=== PATIENT | male | born 1965 | race Caucasian/White ===

== ENCOUNTER 2018-08-29 14:17 | Inpatient (IN) | payer OTHER ==
[~2018-08-29] VITALS: Ht 180.3 cm; Wt 105.2 kg
--- NOTE | ~2018-08-29 | H ---
[facility] [place] [address] HISTORY AND PHYSICAL Name: GERMAINE PETERS Room #: 504-1 ADM IN M.R.#: [id number] Admission: 08/29/18 ������������������ Attend Phys: James Jacobs MD Discharge: ������������������ Date of : 61 Report #: [id number] THIS REPORT FOR: //name// CC: James Jacobs [facility] physician/PCP DATE OF SERVICE: 08/29/2018 HISTORY AND PHYSICAL/POSTADMISSION PHYSICIAN EVALUATION: HISTORY OF PRESENT ILLNESS: This is a 52-year-old white male who was originally admitted to [facility] on 08/15/2018 with complaints of altered mental status. He was found to have acute encephalopathy, confusion and lethargy. He reportedly took narcotics in a suicide attempt. He also was noted to have elevated alcohol with intoxication ____ on admission. He had made multiple threats to harm himself. He was intubated on arrival to the Emergency Department and admitted to the ICU. He had improved, mentation was extubated, but the next day, he unfortunately became increasingly agitated and delirious. There was suspicion for alcohol withdrawal. He was reintubated, required high doses of medication for sedation. He was started on Depakote and Librium. He was extubated on 08/22/2018 and was noted to be gradually returning close to his baseline as the medications have gotten out of his system. He was continued on a 1:1 sitter for initial concerns regarding suicide attempt. Psych was consulted. The patient was not felt to be suicidal. He was still noted to have significant functional mobility and ADL deficits, was noted to have a multifactorial encephalopathy and has been transferred for acute in-hospital inpatient rehabilitation. My understanding is that after he has completed his inpatient rehabilitation he then is to be transferred to an inpatient drug and alcohol treatment center. PAST MEDICAL HISTORY: Includes left arm trauma with several surgeries, essentially loss of triceps function and note to have arm replantation. He has had a cervical fusion C4-C5. He has had a liver biopsy. 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 MEDICATIONS: Please see the full medication listing. This is including vitamins, herbals, and supplements as per report. HABITS: As noted above. Tobacco and alcohol abuse. 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 is retired. She does cooking and cleaning. REVIEW OF SYSTEMS: Did not offer any current complaints of chest pain, [address] [address] HISTORY AND PHYSICAL Name: GERMAINE PETERS Room #: 504-1 [facility] IN ..#: [id number] Admission: 08/29/18 ������������������ Attend Phys: James Jacobs MD Discharge: ������������������ Date of : 61 Report #: [id number] shortness of breath or abdominal discomfort. No complaints of headache, no bowel or bladder changes. He has the premorbid left upper extremity weakness. No focal extremity pain complaints. PHYSICAL EXAMINATION: GENERAL: This is a 52-year-old white male, in no obvious distress. VITAL SIGNS: Temperature 36.4, pulse 73, respirations 18, blood pressure 125/87. NEUROLOGIC: He is alert. He can follow basic 1 step commands, was able to tell me about his prior history seems somewhat impulsive, but is easily redirectable. HEENT: Facies appeared symmetric. CHEST: Sounded clear to auscultation. CARDIAC: Regular rate and rhythm. ABDOMEN: Obese, bowel sounds positive, nontender. GENITOURINARY AND RECTAL: Deferred. EOMs are full. There is no nystagmus. Functional range of motion of both upper extremities except his left upper extremity has multiple surgical scars and he is unable to extend the left elbow at all with definite triceps weakness. This is all premorbid. Full strength of the right upper extremity. Lower extremities, no focal calf swelling. Tone appeared to be intact. Strength is probably a grade 4-/5. He does have some decreased balance with attempted tandem gait higher level balance skills has some decreased safety issues. ASSESSMENT: This is a 52-year-old white male with the following problem list: 1. Multifactorial encephalopathy. 2. Gait instability, which is improving. 3. Suicidal behavior with attempted self-injury. 4. Intentional narcotic overdose with concurrent alcohol intoxication. 5. Systemic inflammatory response syndrome. 6. Previous ICU stay with intubation and suspected ETOH withdrawal. 7. Tobacco abuse. 8. Cirrhosis of the liver. 9. Premorbid left arm trauma with weakness. PLAN: The patient is admitted for acute in-hospital inpatient rehabilitation. From a post-admission physician evaluation perspective, there are no relevant changes since the preadmission screening. Please see the above review of prior and current medical and functional conditions and comorbidities. Please see the patient's previous and current functional status. As far as risk of complications, he does have the above noted comorbidities. Initial plan of care involves the interdisciplinary acute inpatient rehabilitation program with goal of maximizing the patient's functional independence, so that he can hopefully return back to his prior living situation. Measurable functional goals would be for the patient to become modified independent with transfers, mobility and ADLs as well as cognition, communication issues. Prognosis is reasonably good with estimated length of stay probably around a week, pending progress. Potential [facility] [address] [place] [address] HISTORY AND PHYSICAL Name: GERMAINE PETERS Room #: 504-1 ADM IN M.R.#: [id number] Admission: 08/29/18 ������������������ Attend Phys: James Jacobs MD Discharge: ������������������ Date of : 61 Report #: [id number] barriers would include his above noted medical comorbidities and his decreased functional status. Again, the plan as I understand it would be for him to transition to a drug and alcohol inpatient center once he completes his inpatient medical rehabilitation. The overall plan of care is based on preadmission screen, post-admission physician evaluation and information garnered from therapy assessments. 1. Estimated length of stay is probably a week. 2. Medical prognosis is reasonably good. 3. Anticipated interventions includes the interdisciplinary acute inpatient rehabilitation program. 4. Anticipated functional outcomes would be for the patient to become modified independent with transfers, mobility and ADLs and cognition, so that he can continue with his recovery process. 5. Discharge destination is as noted above. 6. Expected therapy by discipline includes PT, OT and speech 1 hour per day each five days a week throughout the duration of the acute inpatient rehabilitation stay. Internal Medicine has been consulted as well as Psychiatry and rehabilitation psychology. He appears cooperative, easily redirectable. We are currently utilizing the bed and chair alarm for him from a safety perspective. He does not appear to be an elopement risk at this time, but this will need to be monitored. Hopefully, he will not have episodes of agitation, etc. while he is here, but we will have Psychiatry assist. At this current time, he is very cooperative and appears to understand why he is here and is of the standing that he will be going to a drug and alcohol treatment center once he is further improves functionally here on the inpatient rehab [place]. ��������������������������������������������� ���������������������������������������� By: ��������������������������������������������� 0938 [id number] James Jacobs MD /nt
--- NOTE | 2018-08-29 19:04 | NUR ---
PT ARRIVED AT 1650. VITALS STABLE. PT C/O LOW BACK PAIN AND NECK PAIN. ALERT AND ORIENTED*3, CONFUSED, FORGETFUL, RESTLESS AND EASILY DISTRACTED. PT WAS IMPULSIVE AND ALTHOUGH USING THE CALL LIGHT HE DOES NOT WAIT FOR ASSISTANCE PRIOR TO GETTING UP. ABDOMEN FIRM AND DISTENDED, PT REPORTED MULTIPLE STOOLS TODAY, BS ACTIVE *4. DRESSING ON RIGHT BASILIC WHERE PICLINE WAS REMOVED REMAINS DRY AND INTACT, TO DC DRESSING ON 08/30 AT 3PM. LACERATION ON LEFT ELBOW REMAINS INTACT. PT UP WITH 1 PERSON SBA. Q1H VISUAL CHECKS. CALL LIGHT WITHIN REACH, ROOM NEAR NURSES' STATION
[2018-08-29 20:12] VITALS: BP 124/69
--- NOTE | 2018-08-30 01:53 | NUR ---
assumed care at approx 1900 evening 08/29. pt dangling on side of bed at change of shift. pt appears alert and oriented x4, somewhat forgetful. pt states he doesnt want to break any rules but when he has to go to the bathroom he needs to go quickly and doesn't want to have an accident. pt up with 1 assist with standby and voided in toilet. no bms on this shift so far. pt cooperative on this writers shift. pt took hs meds with water and appears to be sleeping soundly with hourly rounding checks. pt using urinal at bedside tonight. pt wearing his own cpap machine. bed alarm on and call light in reach. will continue to monitor.
[2018-08-30 05:25] LABS: HEMOGLOBIN 15.6 gm/dL (14.0-18.0); MCH 32.9 pg (26.0-34.0); MCHC 33.9 g/dL (28.0-37.0); MCV 96.9 fL (80.0-100.0); RBC 4.75 mil/uL (4.50-6.00); RDW 13.5 % (10.5-14.5); WBC 6.5 thou/uL (4.0-11.0)
[2018-08-30 05:38] LABS: ALBUMIN 3.3 g/dL (3.4-5.0); CALCIUM 9.2 mg/dL (8.5-10.1); CREATININE 0.9 mg/dL (0.7-1.3); POTASSIUM 4.5 mmol/L (3.5-5.1); TOTAL BILIRUBIN 0.5 mg/dL (<0.1-1.0); TOTAL PROTEIN 7.3 g/dL (6.4-8.2)
[2018-08-30 08:22] VITALS: BP 125/87
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
--- NOTE | 2018-08-30 11:00 | NUR ---
Nutrition: assess d/t consult for poor intake. Pt admitted for encephalopathy. Pt states that he ate 100% of breakfast today and has had a good appetite. He did refuse dinner tray last night, but had eaten prior to admit. Pt states that the food is excellent and he had no other questions. Obese per BMI of 32.4. Consider low risk.
--- NOTE | 2018-08-30 19:45 | NUR ---
ASSUMED CARES AT 0700. PT AWAKE, ORIENTED TO PERSON AND PLACE, IMPULSIVE AND RESTLESS. ANXIOUS THIS AFTERNOON AND NON-COMPLIANT WITH TRANSFERS, HIGH RISK FOR FALLS R/T UNSTEADY GAIT AND IMPULSIVITY, SITTER AT BEDSIDE. VITALS REMAIN STABLE. C/O BACK PAIN, OXYCODONE ADMINISTERED ORDERED. WOUND ON LEFT ELBOW CLEANED AND DRESSING CHANGED. PT UP WITH SBA AND TOLERATED WELL. Q1H VISUAL CHECKS. CALL LIGHT WITHIN REACH. FALL PRECAUTIONS IN PLACE
[2018-08-30 20:18] VITALS: BP 111/84
--- NOTE | 2018-08-30 23:51 | NUR ---
PT ASSESSMENT COMPLETED AND VSS. MEDS GIVEN ORDERED AND WELL TOLERATED. FALL PRECAUTIONS IN PLACE. PRN PAIN AND MUSCLE RELAXER HELPFUL FOR LEFT ARM AND NECK PAIN. UP TO THE BATHROOM WITH ASST/GAIT. SITTER AT BEDSIDE. REMAINS IMPULSIVE. SLEEPING. WILL CONTINUE TO MONITOR FREQUENTLY.
[2018-08-31 07:30] VITALS: BP 116/72
--- NOTE | 2018-08-31 07:34 | NUR ---
PT REMAINS IMPULSIVE. NO SITTER AVAILABLE THIS AM PER HOUSE SUP. WILL MONITOR CLOSELY.
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
[2018-08-31 21:06] VITALS: BP 110/56
[2018-08-31 21:35] VITALS: BP 98/66
--- NOTE | 2018-08-31 23:23 | NUR ---
PT ASSESSMENT COMPLETED AND VSS. MEDS GIVEN ORDERED AND WELL TOLERATED. FALL PRECAUTIONS IN PLACE AT HS. PLEASANT. UP TO THE BAHTROOM - STEADY. CPAP ON AT HS. 02 SAT MONITOR WNL. SLEEPING WELL. WILL CONTINUE TO MONITOR FREQUENTLY.
[2018-09-01 07:30] VITALS: BP 111/82
--- NOTE | 2018-09-01 16:24 | NUR ---
ASSUMED CARE OF PT AT 0715. PT IS A&OX4. IS ON ROOM AIR. REPORTS PAIN IN NECK THAT IS BEING MANAGED WITH SCHEDULED PAIN MEDS. PT IS UP WITH SBA & GB. FALL PRECAUTIONS IN PLACE. PT REFUSED TO WEAR GB AT FIRST & CALL OUT FOR ASSISTANCE WITH NEEDING TO AMBULATE. EDUCATION PROVIDED BY THIS THIS NURSE & CLOTH SANDER ON IMPORTANCE OF SAFETTY. PT STATED "I WAS TOLD BY THE DIGITAL FIELD SERVICE TECHNICIAN THAT I CAN BE UP ON MY OWN IN MY ROOM". THIS NURSE CONTACTED DR. JENKINS. DR. FRAUSTO WITH PT BEING MOD I IN ROOM. PT IS STABLE. PT HAS ANKLE WEIGHTS ON IN ROOM. WOULD NOT REVEAL WHERE THEY WERE FROM. HOURLY ROUNDING MAINTAINED. LABS & VITALS REVIEWED. PT IS CURRENTLY IN ROOM WATCHING TV. SITTING ON THE SIDE OF THE BED. CALL LIGHT WITHIN REACH. WILL CONTINUE TO MONITOR.
[2018-09-01 20:13] VITALS: BP 119/90
--- NOTE | 2018-09-02 04:33 | NUR ---
ASSUMED CARE AT APPROX 1900 EVENING 09/02. PT SITTING OUT AT DINING TABLE AT CHANGE OF SHIFT WORKING ON PUZZLE. PT ALERT AND ORIENTED X4, PLEASANT AND APPROPRIATE. PT UP IN HIS ROOM ON HIS OWN. PT REFUSING TO WEAR SHOES AND OR YELLOW SLIPPERS AND PT WALKING BACK TO HIS ROOM WITHOUT ASSIST PT WILL NOT WAIT FOR STAFF TO ASSIST HIM. PT APPEARS TO BE SLEEPING SOUNDLY TONIGHT WITH CPAP MACHINE ON. CALL LIGHT IN REACH. WILL CONTINUE TO MONITOR.
[2018-09-02 08:00] VITALS: BP 118/83
--- NOTE | 2018-09-02 10:32 | NUR ---
ASSUMED CARES AT 0700. PT ORIENTED *3. FORGETFUL. C/O CHRONIC BACK AND NECK PAIN , HYDROCODONE ADMINISTERED ORDERED. VITALS REMAIN STABLE. 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 PT CAN BE IMPULSIVE, ROOM BY NURSE'S STATION, FREQUENT VISUAL CHECKS. CALL LIGHT WITHIN REACH. FALL PRECAUTIONS IN PLACE
--- NOTE | 2018-09-02 14:08 | NUR ---
DISCHARGE PLANNING: PT ARRIVED TO NURSE TRAPPER BIRD'S OFFICE REQUESTING TO SPEAK TO RESPITE COORDINATOR. HE STATED THAT HE HAS PHONE NUMBERS THAT SHE REQUESTED. THESE ARE THE FOLLOWING: [facility] PROVIDER LINE FOR MD'S [phone], THE PLACE FOR OVERNIGHT IN-HOUSE ALCOHOL RECOVERY PROGRAM IS [phone] ON [facility]. PER PT, THIS WILL ENABLE HIM TO WORK DURING THE DAY AND HE WOULD GO TO THE RECOVERY PROG AT NIGHT.
--- NOTE | 2018-09-02 14:30 | NUR ---
ADDITIONAL DC PLANNING INFORMATION: PT'S PCP IS DR. CLINTON BOWMAN AT [facility]. PHONE IS [phone], FAX IS [phone].
--- NOTE | 2018-09-02 15:40 | NUR ---
cm visited with pt at bedside, he is up adlib in room, sitter sit with him. rediscussed dcp of inpt rehab for alcohol. " i will go to work during the day and go to treatment at night and can go to aa on lunch break"/yesenia. education and pt will not be cleared to work or drive vehicle until cleared by his primary doctor " oh i can get appointment tomorrow and see her"/pt. education that important to go to inpt and then transition to outpt. not going to be cleared to go to work and dr addison provided work release letter from [facility]. discussed [facility] and [facility] " ok to send referral but after work would be better for me"/pt. cm spoke with kamilah who again stated " [facility] faxing over the form that says in needs inpt treatment program and i will not allow him to come home until he get it, if he want to work things out with his family he needs to do so. my son said you can hold him and make him go. i fear for my safety if he come home and drinks and."/kamilah . education that he has not stated he was going to hurt himself or anyone else the entire time since he was been here. " of course he will not, he is smart and knows what to say, his son in kcpd and can come at take him to any inpt alcohol treatment facility."/kamilah. pt provided another number to call for rehab. cm left message with [facility] requested call back, will cont following as needed for dc needs.
--- NOTE | 2018-09-02 15:42 | NUR ---
[facility] IN ADM. SHE RECEIVED REFERRAL AND REVIEWED. SHE IS REQUESTING ON DATE OF DISCHARGE TO FAX THAT DAYS V.S. AND CLINICAL NOTES TO DETERMINE IF THEY CAN ACCEPT.
--- NOTE | 2018-09-02 16:25 | NUR ---
FAXED REFERRAL TO [facility] SPOKE WITH DEMARIO IN ADM. SHE RECEIVED REFERRAL ADN WILL REVIEW. DCP TO FOLLOW.
[2018-09-02 19:19] VITALS: BP 137/74
--- NOTE | 2018-09-02 23:48 | NUR ---
PT ASSESSMENT COMPLETED AND VSS. MEDS GIVEN ORDERED AND WELL TOLERATED. UP TO THE BATHROOM - STEADY. PT ANXIOUS ABOUT GOING TO A TREATMENT FACILITY AFTER D/C. PROVIDED MUCH EMOTIONAL SUPPORT. PT STATED THAT HE UNDERSTANDS WHY IT IS IMPORTANT AND WANTS TO DO WHAT IT WILL TAKE TO ADDRESS HIS ADDICTIONS/MARRIAGE/AND DEPRESSION. CPAP ON AT HS. SLEEPING. WILL CONTINUE TO MONITOR FREQUENTLY.
[2018-09-03 07:30] VITALS: BP 115/80
--- NOTE | 2018-09-03 14:20 | NUR ---
team meeting, recommendation : inpt treatment for ethol, dc soon as we have placement
--- NOTE | 2018-09-03 14:47 | NUR ---
PT CALLED OUT AND ASK FOR COUPLE ANXIETY MEDICATIONS. PT ON BUSPAR AND CELEXA SCHEDULE. HAS NO PRN ANXIETY MEDICATION AT THIS MOMENT. PT SAID HE HAS ANXIETY ATTACK, PT IS SHAKING. OFFERED SUPPORTIVE CARE AND TIZANIDINE PRN. CALLED DARIO HOUGH. WHO SUGGESTS THIS JOB ANALYST TO CALL DR. BOYKIN. CALLED DR. BOYKIN AND WAITING FOR A CALL BACK. PT RATES ANXIETY 01/25, DENIES DEPRESSION, SI/HI, REPORTS SLEEP GOOD. AT BEDSIDE. CM IS TALKING WITH PT AT THIS MOMENT. NOTIFIED MASON, WHO IS PT'S NURSE TODAY AND WILL CONTINUE TO FOLLOW UP.
[2018-09-03 20:00] VITALS: BP 102/78
--- NOTE | 2018-09-03 20:09 | NUR ---
ASSUMED CARE AT APPROX 0715. PATIENT A/O X4. C/O PAIN IN BACK AND NECK, AND HEADACHE. MEDICATED FOR PAIN PER ORDERS. NICOTINE PATCH APPLIED. PATIENT VOICED NO THOUGHTS OF HARMING HIMSELF OR OTHERS, PATIENT STATED HE WAS AGREEABLE TO DISCHARGE TO INPATIENT PROGRAM FOR ALCOHOL ABUSE. PATIENT STEADY ON HIS FEET, MADE MOD I IN ROOM. VSS ON ROOM AIR. PATIENT PARTICIPATED IN THERAPY. CALLS APPROPRIATELY FOR ASSITANCE. RESTING IN BED AT CHANGE OF SHIFT.
--- NOTE | 2018-09-04 02:03 | NUR ---
PATIENT PLEASANT AND UP AD FLEX IN ROOM. TOLERATING CPAP, ANTIBIOTIC OINTMENT INITIATED TO INNER UPPER RIGHT ARM.
[2018-09-04 08:50] VITALS: BP 110/77
--- NOTE | 2018-09-04 10:07 | NUR ---
ASSUMED CARES AT 0700. PT AWAKE, ALERT AND ORIENTED*3. C/O NECK AND BACK PAIN, PAIN PILL ADMINISTERED SCHEDULED PRIOR TO ACTIVITY. VITALS REMAIN STABLE. PULSES ARE 2+/2+. RASH ON RIGHT UPPER ARM IMPROVING, CLOMITRAZOLE CREAM APPLIED ORDERED. PT REMAINS MODIFIED INDEPENDENT IN ROOM. FREQUENT VISUAL CHECKS/ ROOM BY NURSE'S STATION. PT TO DC TODAY AT 1230 TO [facility], REPORT TO BE GIVEN AT HR OF DISCHARGE.
[2018-09-04] MEDS ORDERED: OXYCONTIN15 MG PO (10:09)
[2018-09-04] MEDS ORDERED: DEPO-TESTO200 MG/1 M IM (10:10)
[2018-09-04] MEDS ORDERED: BUSPIRONE HCL5 MG PO (10:11)
[2018-09-04] MEDS ORDERED: PROTONIX 20 MG20 M1 PO (10:11)
[2018-09-04] MEDS ORDERED: CLOTRIMAZOLE 1%15 G1 TOP (10:11)
[2018-09-04] MEDS ORDERED: LEXAPRO20 MG PO (10:11)
[2018-09-04] MEDS ORDERED: ERGOCALCIF50000 UNIT PO (10:11)
[2018-09-04] MEDS ORDERED: NICOTINE TRANSD21 M1 TRANSDERM (10:11)
[2018-09-04] MEDS ORDERED: MUPIROCIN22 GM TOP (10:11)
[2018-09-04] MEDS ORDERED: XARELTO20 MG PO (10:11)
[2018-09-04] MEDS ORDERED: VOLTAREN100 GM TOP (10:11)
[2018-09-04] MEDS ORDERED: ZANAFLEX4 MG PO (10:11)
[2018-09-04] MEDS ORDERED: VISTARIL 25 MG25 M1 PO (10:11)
[2018-09-04] MEDS ORDERED: COREG6.25 MG PO (10:11)
[2018-09-04] MEDS ORDERED: MELATONIN5 M1 PO (10:11)
--- NOTE | 2018-09-04 10:12 | NUR ---
[facility] has accepted for inpt ethol treatment program, transport set up for 1230. chart copy requested. cm notified pt at bedside "thank you so much for all you have done"/pt. cm call notified kamilah "thank you this has been so stressful and i can not get over there this morning to take him, going to call to see what i need to bring him there. thank you"/kamilah. dcp [facility]
--- NOTE | 2018-09-04 10:18 | NUR ---
PT. DISCHARGING TODAY TO [facility] FAXED DC ORDERS/SUMMARY TO FACILITY SPOKE WITH FÁTIMA IN ADM. SHE RECEIVED DC ORDERS AND THAT TRANSPORT ARRANGED FOR 1230 TODAY VIA [facility] ([facility]). NOTIFIED BY SW. UNIT NOTIFIED AND CHART COPY PER US. RN TO CALL REPORT TO [phone].
--- NOTE | 2018-09-07 15:46 | HC ---
[facility] [place] [address] CONSULTATION Name: GERMAINE PETERS Room #: 504-1 [facility] M.R.#: [id number] Admission: 08/29/18 ������������������ Attend Phys: James Jacobs MD Discharge: 09/04/18 ������������������ Date of : 61 Report #: [id number] THIS REPORT FOR: //name// CC: James Jacobs FAM physician/PCP DATE OF SERVICE: 08/31/2018 NEUROBEHAVIORAL STATUS EXAMINATION ATTENDING PHYSICIAN: James Jacobs MD GORE INSERTER: Gallo Prakash, PhD CLINICAL PRESENTATION: The patient is a 52-year-old male admitted to the rehab unit at [facility] for comprehensive inpatient rehabilitation program to improve functional mobility, activities of daily living and self-care and mental status secondary to multifactorial encephalopathy. His assessment on admission included gait instability, suicidal behavior with attempt, intentional narcotic overdose with concurrent alcohol intoxication, systemic inflammatory response syndrome, previous ICU stay with intubation and suspected alcohol withdrawal, tobacco abuse, cirrhosis of the liver and premorbid left arm trauma with weakness. A complete description of his medical condition and history can be found in his medical record. Neuropsychological consultation was requested to provide assistance in the assessment of cognitive and emotional status and to provide recommendations and services. Prior to this most recent admission, the patient was living independently with his in their home. 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 The patient describes a long-standing history of alcohol abuse and prior treatment. His suicide attempt was associated with alcohol intoxication and a conflict with his . She is frustrated with his ongoing alcohol abuse and he impulsively decided to commit suicide. 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 The patient is , with one child from a previous relationship from whom he is estranged. He has 3 brothers and a good social support network. Concern is reported in regard to losing his job as a pourer crane ladle. TECHNIQUES UTILIZED: Clinical interview, review of medical records, staff consultation and behavioral observation, mini mental status exam 2 standard version and clock drawing. [facility] [address] [place] [address] CONSULTATION Name: LORRAINE,DEWEY E Room #: 504-1 [facility] M.R.#: [id number] Admission: 08/29/18 ������������������ Attend Phys: James Jacobs MD Discharge: 09/04/18 ������������������ Date of : 61 Report #: [id number] EXAMINATION FINDINGS: The patient was alert and cooperative with the assessment. There is no report of auditory or visual hallucinations or evidence of thought disorder. He does not present with an expressive or receptive aphasia. H e denies suicidal or homicidal ideation. The suicidal gesture appears impulsive and associated with social conflict and episodic alcohol abuse. He does not report difficulty with sleep or appetite. Subjective anxiety is reported. He denies depression. Energy level is reduced. Difficulty with word finding is long-standing and associated with stuttering. The patient also reports a history of hyperactivity and poor attention/concentration. Long-standing attention deficit hyperactivity disorder is suggested. His performance on the MMSE 2 brief version is within normal limits with a raw score of 16/16. Performance on the standard version of the MMSE 2 is within normal limits with a raw score of 30/30. He was 3/3 for initial registration and recall of 3 items. He has 5/5 for orientation to time and place. He was 5/5 for serial 7s. He could copy a simple geometric design. Clock drawing is within normal limits. The patient is presenting with increased anxiety. Cognitive functioning appears to be returning to premorbid level. Variability in cognitive functioning associated with chronic alcohol abuse is likely. He is alert and oriented, however, the patient is somewhat impulsive. Further evaluation of neurocognitive functioning is indicated. DIAGNOSTIC IMPRESSION: Alcohol use disorder -- persistent -- chronic. Generalized anxiety disorder. Adjustment disorder with depressed mood. RECOMMENDATIONS: Continued psychiatric managment of medication following discharge will be a benefit for long-term therapeutic treatment. Marriage counseling and individual psychotherapy are indicated as an outpatient. Following discharge, an organized mental health treatment plan will be necessary for him to maintain sobriety and assist in adjustment. Marriage counseling will also be necessary to assist his in a conflict resolution and for them to manage more effectively their relationship. The patient indicates a desire to return to work as a pourer crane ladle, however, more thorough neuropsychological assessment is indicated before return to prior employment. [address] [address] CONSULTATION Name: GERMAINE PETERS Room #: 504-1 [facility] M.R.#: [id number] Admission: 08/29/18 ������������������ Attend Phys: James Jacobs MD Discharge: 09/04/18 ������������������ Date of : 61 Report #: [id number] Thank you very much for allowing me to provide the consultation on this patient. ��������������������������������������������� <ELECTRONICALLY SIGNED> ���������������������������������������� By: Gallo Prakash, PhD ��������������������������������������������� 09/07/18 [id number] 0005 Gallo Prakash, PhD /nt
== END 2018-09-04 12:39 | DRG 70 ==
LOC: ENTRNSPT 09-04 12:31 → EDTRNSPTSTS 09-04 12:33
PROVIDERS: Nurse Practitioner Family; ADMIT Physical Medicine & Rehabilitation
DX: G93.49 Other encephalopathy (principal); J96.00 Acute respiratory failure, unspecified whether with hypoxia or hypercapnia; R65.10 Systemic inflammatory response syndrome (SIRS) of non-infectious origin without acute organ dysfunction; R26.9 Unspecified abnormalities of gait and mobility; K74.60 Unspecified cirrhosis of liver; F41.1 Generalized anxiety disorder; F43.21 Adjustment disorder with depressed mood; F10.229 Alcohol dependence with intoxication, unspecified; I10 Essential (primary) hypertension; J44.9 Chronic obstructive pulmonary disease, unspecified; R53.81 Other malaise; E78.00 Pure hypercholesterolemia, unspecified; F17.210 Nicotine dependence, cigarettes, uncomplicated; M54.2 Cervicalgia; G89.29 Other chronic pain; Z86.718 Personal history of other venous thrombosis and embolism; Z79.01 Long term (current) use of anticoagulants; T40.692A Poisoning by other narcotics, intentional self-harm, initial encounter; Y92.89 Other specified places as the place of occurrence of the external cause; F41.9 Anxiety disorder, unspecified; F32.9 Major depressive disorder, single episode, unspecified
CPT/HCPCS: 10112